=== PATIENT | male | born 1990 | race African-American/Black ===

== ENCOUNTER 2019-08-12 09:50 | Emergency (ER) | payer BC, SELFPAY ==
--- NOTE | ~2019-08-12 | CT_ITS ---
EXAMINATION: CT lumbar spine wo con EXAM DATE: 08/12/2019 13:08 INDICATION: Fell 4 times yesterday. TECHNIQUE: Spiral CT lumbar spine was performed without contrast. Axial, coronal and sagittal images were reviewed. The dose-length product (DLP) for this examination was 1232.37 mGy-cm. The exposure was tailored according to patient size (auto mA exposure control), and iterative reconstruction (ASIR ) was used as additional dose reduction technique. Correlation is made to Lumbar spine MRI examinatio n 05/18/2019 FINDINGS: Sacroiliac joints intact. There is no evidence of acute lumbar fracture or spondylolysis. There is no disc space widening or traumatic vertebral body subluxation suspected. Paraspinal soft tissue is unremarkable. The vertebral bodies are aligned in the AP dimension. L4-5 has mild to moderate disc bulge with superimposed central extrusion, some inferior migration mike pected, have increased slightly in size compared to previous exam. This is causing moderate central c anal stenosis. Only mild spondylosis at the other levels. There are no bony erosions identified. A detailed level by level evaluation of spondylosis can be added as addendum if requested. IMPRESSION: 1. L4-5 disc bulge, central protrusion and moderate central canal stenosis, may have progressed slig htly compared to April. 2. No acute findings. Reviewed, dictated and finalized at location B. MATION QA ANALYST IMPRESSION: 1. L4-5 disc bulge, central protrusion and moderate central canal stenosis, ma y have progressed slightly compared to April. 2. No acute findings.
[2019-08-12 10:09] VITALS: BP 161/100; PULSE 99; RESP 19; TEMP 36.9; O2SAT 100
--- NOTE | 2019-08-12 13:37 | ED.BACK ---
HPI - Back Pain/Injury General Chief Complaint: Back Pain/Injury Stated Complaint: back pain Time Seen by Provider: 08/12/19 11:36 Source: patient Mode of arrival: ambulatory Limitations: no limitations History of Present Illness HPI Narrative: Patient presents with chief complaint of exacerbation of chronic low back pain with bilateral radiculopathy. Patient states that he has bulging disks in his back. He denies known injury that caused the symptoms. 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 Patient states that he is a patient at the [facility] and he had back injections 3 weeks ago but they did not help so he was referred to another specialist. Patient states he was supposed to see his primary care Dr. Scott, but he has been rescheduled over the last 3 days. He states that the pain hurts so bad that is difficult to ambulate. He reports he feels best when lying flat on his back. Patient denies saddle paresthesia or loss of bowel or bladder function. Patient denies fever, chills, nausea, vomiting, urinary symptoms. Patient states that he takes gabapentin for his pain. Patient states that he also takes methocarbamol. Patient states methocarbamol, gabapentin, tramadol, Naproxen did not help with his pain. Related Data Home Medications Medication Instructions Recorded Confirmed acyclovir 08/12/19 gabapentin 08/12/19 metformin mg PO 08/12/19 naproxen 08/12/19 Allergies Allergy/AdvReac Type Severity Reaction Status Date / Time No Known Allergies Allergy Verified 08/12/19 10:12 Review of Systems Review of Systems: Narrative: CONSTITUTIONAL: Denies fever, chills, or sweats. EYES: Denies visual changes, redness, or discharge. ENT: Denies rhinorrhea, congestion, sore throat, or otalgia. CARDIOVASCULAR: Denies chest pain, palpitations, or edema. RESPIRATORY: Denies cough or dyspnea. GASTROINTESTINAL: Denies abdominal pain, nausea, vomiting, or diarrhea. GENITOURINARY: Denies dysuria or hematuria. SKIN: Denies rash or itching. MUSCULOSKELETAL: Reports back pain, denies joint pain, or myalgia. NEUROLOGIC: Denies headache, numbness, dizziness, or weakness. PSYCHIATRIC: Denies anxiety or depression. [facility] Past Medical History Medical History (Updated 08/12/19 @ 14:30 by Ivelisse Brown PA-C) L4-L5 disc bulge Social History Social History (Updated 08/12/19 @ 13:50 by Ivelisse Brown PA-C) Smoking status: Never smoker Alcohol intake: unknown Substance use: never Gender identity (if verbalized by the patient): Male Exam Narrative: Exam Narrative: GENERAL: Well-appearing, well-nourished, and in no acute distress. HEAD: Normocephalic, atraumatic. EYES: PERRLA and EOMI. ENT: Nares clear, no rhinorrhea or epistaxis. Mucous membranes moist. Oropharynx without tonsillar hypertrophy exudate or other lesions. Bilateral TMs pearly flowers nonbulging NECK: Supple. No adenopathy or masses. No carotid bruits or JVD CHEST: Clear to auscultation. No respiratory distress. No wheezes rales or rhonchi HEART: Regular rate and rhythm. No murmur heard. Normal peripheral pulses. ABDOMEN: Soft, nontender, nondistended, normal active bowel sounds. BACK: No pain with palpation. No outward signs of trauma. Patient has sensation range of motion intact in his lower extremities. Patient has back brace which she has removed. Patient reports pain to lower back with any range of motion of lower extremities while performing straight leg raise test. Patient most comfortable in supine position. EXTREMITIES: Normal range of motion. No edema. SKIN: Warm, dry, no rash. NEURO: No focal deficits. Alert and oriented x3. PSYCH: Normal mood and affect. Course Vital Signs Vital signs: Vital Signs Temperature 98.5 F 08/12/19 10:09 Pulse Rate 99 08/12/19 10:09 Respiratory Rate 19 08/12/19 10:09 Blood Pressure 161/100 H 08/12/19 10:09 Pulse Oxim
[2019-08-12] MEDS: KETOROLAC (*BKC) 60 MG/2 ML VIAL 30 MG IM (13:38)
[2019-08-12] MEDS: methylPREDNISolone SOD SUCC 125 MG VIAL 80 MG IM (13:38)
[2019-08-12 14:56] VITALS: BP 140/90; PULSE 80; RESP 18; O2SAT 99
== END 2019-08-12 14:57 | disposition home or self-care (01) ==
PROVIDERS: Emergency Provider Emergency Medicine; PCP Anesthesiology Pain Medicine
DX: M51.26 Other intervertebral disc displacement, lumbar region (principal); M48.061 Spinal stenosis, lumbar region without neurogenic claudication; E11.9 Type 2 diabetes mellitus without complications
CPT/HCPCS: 72131; 96372; 99284; J1885; J2930

== ENCOUNTER 2023-05-03 18:37 | Emergency (ER) | payer SELFPAY ==
--- NOTE | ~2023-05-03 | XR_ITS ---
EXAMINATION: XR shoulder LT min 2V DATE: 05/03/2023 19:04 INDICATION: Left shoulder pain while lifting weights TECHNIQUE: AP internally and externally rotated, AP oblique externally rotated and transscapular Y vi ews of the left shoulder were obtained. COMPARISON: None FINDINGS: Normal alignment. No fracture. Glenohumeral joint is normal. Acromioclavicular joint is normal. Soft tissues are unremarkable. Visualized portions of the lungs are clear. IMPRESSION: Negative left shoulder radiographs. Reviewed, dictated and finalized at location A.
[2023-05-03 18:46] VITALS: BP 166/98; PULSE 101; RESP 16; TEMP 36.2
--- NOTE | 2023-05-03 20:35 | ED.GENADULT ---
HPI - General Adult General Chief complaint: Unspecified Stated complaint: elft shoulder pain Time Seen by Provider: 05/03/23 19:51 History of Present Illness HPI narrative: Patient is a 32-year-old male who presents to the emergency department this afternoon complaining of left shoulder pain. Patient states that he has been having issues with his left shoulder for the past few months, however, due to some yard work and working out at the gym today, he feels as though he aggravated it and now is complaining of worsening pain. Patient states that the pain is worse with movement and he is unable to abduct his left arm more than 30 to 40 degrees due to pain. He denies any recent falls or injuries. Patient denies any chest pain, shortness of breath, nausea, vomiting, abdominal pain, dysuria, hematuria, constipation, diarrhea, melena, hematochezia, fevers or chills. He also denies any headaches, dizziness, lightheadedness, blurry visions, dizziness, focal weakness, numbness and or tingling. There are no other modifying, alleviating, or precipitating factors at this time. Related Data Home Medications Medication Instructions Recorded Confirmed acyclovir 800 mg tablet 08/12/19 gabapentin 800 mg tablet 08/12/19 metformin 500 mg tablet,extended mg PO 08/12/19 release 24 hr naproxen 500 mg tablet 08/12/19 Allergies Allergy/AdvReac Type Severity Reaction Status Date / Time No Known Allergies Allergy Verified 08/12/19 10:12 Review of Systems Review of Systems: All systems are reviewed and are negative unless stated otherwise in the HPI. [facility] Past Medical History Medical History L4-L5 disc bulge Social History Social History Smoking status: Never smoker Alcohol intake: unknown Substance use: never Gender identity (if verbalized by the patient): Male Exam Narrative: General: Alert, awake, afebrile, in no acute distress. HEENT: PERRL, no rhinorrhea, no post nasal drip, oropharynx clear. Neck: Trachea midline, no JVD, no lymphadenopathy. Cardiovascular: Regular rate and rhythm, no murmurs, rubs or gallops, no peripheral edema. Respiratory: Clear to auscultation bilaterally, no tachypnea, no wheezing, no rhonchi, no rubs, no respiratory distress. Abdomen: Soft, nontender, nondistended, no rebound, no guarding, no peritoneal signs. Musculoskeletal: No joint swelling or deformity, normal muscle tone, limited range of motion at the left shoulder joint due to pain, patient is only able to abduct his left arm at the shoulder joint 30 to 40 degrees from midline, no palpable deformity, patient is neurovascularly intact Skin: No rashes or petechia, no signs of infection. Psychiatric: Alert and oriented, normal behavior and judgment for situation. Neurological: Alert and oriented to person, place, and time. Follows all commands. No focal deficits, speech is clear and fluent. Course Vital Signs Vital signs: Vital Signs Temperature 97.2 F L 05/03/23 18:46 Pulse Rate 101 H 05/03/23 18:46 Respiratory Rate 16 05/03/23 18:46 Blood Pressure 166/98 H 05/03/23 18:46 Oxygen Delivery Room Air 05/03/23 18:46 Temperature 97.2 F L 05/03/23 18:46 Pulse Rate 101 H 05/03/23 18:46 Respiratory Rate 16 05/03/23 18:46 Blood Pressure 166/98 H 05/03/23 18:46 Oxygen Delivery Room Air 05/03/23 18:46 Medical Decision Making MDM Narrative Medical decision making narrative: The patient was evaluated by myself in the emergency department. History is obtained from patient who is an independent historian and physical exam was performed. External medical records were reviewed at this time. Imaging studies obtained included a left shoulder x-ray which was independently interpreted by me revealing no acute process, which is pending final radiology interpretation. Differential diagnosi
[2023-05-03 20:58] VITALS: BP 170/112; PULSE 98; RESP 20; O2SAT 98
== END 2023-05-03 20:59 | disposition home or self-care (01) ==
PROVIDERS: Emergency Provider Emergency Medicine; PCP Anesthesiology Pain Medicine
DX: S43.422A Sprain of left rotator cuff capsule, initial encounter (principal); M75.52 Bursitis of left shoulder; X50.9XXA Other and unspecified overexertion or strenuous movements or postures, initial encounter
CPT/HCPCS: 73030; 99283

== ENCOUNTER 2024-03-30 15:02 | Outpatient (CLI) | payer BC, SELFPAY ==
--- NOTE | ~2024-03-30 | XR_ITS ---
Lumbosacral Spine: AP and lateral views Clinical History: Pain Findings: The normal lordotic curve is maintained. The vertebral bodies and posterior elements are i ntact. There is mild loss of disc height at L4-L5 and L5-S1.. The sacroiliac joints are normally out lined. Impression: Minimal degenerative spondylosis. Reviewed, dictated and finalized at [facility]. Impression: Minimal degenerative spondylosis.
--- NOTE | ~2024-03-30 | XR_ITS ---
EXAM: XR shoulder RT min 2V DATE: 03/30/2024 15:52 HISTORY: PAIN OF R SHOULDER JOINT;LBP . COMPARISON: None available. FINDINGS: Normal mineralization. No fracture or dislocation. No lytic or blastic lesion. Joint space s are maintained. No erosion or periosteal change. Soft tissues within normal limits. IMPRESSION: Normal right shoulder radiograph findings. If symptoms persist consider MRI of the should er for further evaluation. Reviewed, dictated and finalized at location K. IMPRESSION: Normal right shoulder radiograph findings. If symptoms persist cons ider MRI of the shoulder for further evaluation.
== END 2024-03-30 15:03 | disposition home or self-care (01) ==
PROVIDERS: PCP Nurse Practitioner Family; Visit Provider Nurse Practitioner Family
DX: M47.816 Spondylosis without myelopathy or radiculopathy, lumbar region (principal); M47.817 Spondylosis without myelopathy or radiculopathy, lumbosacral region; M25.511 Pain in right shoulder
CPT/HCPCS: 72100; 73030

== ENCOUNTER 2025-02-08 11:36 | Emergency (ER) | payer BC, SELFPAY ==
[2025-02-08] VITALS (24 sets, daily range): BP systolic 147–173; BP diastolic 99–113; PULSE 79–103; RESP 9–21; TEMP 36.8; O2SAT 97–100
--- NOTE | ~2025-02-08 | XR_ITS ---
Exam: Chest 2 views. Clinical history: CP TECHNIQUE: Frontal and lateral images of the chest were obtained. Comparisons: None. FINDINGS: Heart is not enlarged. No pneumothorax. No pleural effusion. No free air in the diaphragm. Right hilum is prominent. Differential includes overlapping vasculature, adenopathy, mass or focal co nsolidation. No comparison studies are available. A chest CT is recommended. IMPRESSION: 1.Right hilum is prominent. Differential includes overlapping vasculature, adenopathy, mass or focal consolidation. No comparison studies are available. A chest CT is recommended. Reviewed, dictated and finalized at location A. IMPRESSION: 1.Right hilum is prominent. Differential includes overlapping vasculature, dori opathy, mass or focal consolidation. No comparison studies are available. A [facility] CT is recommended.
--- NOTE | ~2025-02-08 | CT_ITS ---
EXAMINATION: CTA chest DATE: 02/08/2025 13:27 CDT INDICATION: Chest pain TECHNIQUE: Computed tomographic angiography (CTA) of the chest was performed with 100 mL Omnipaque-35 0 intravenous contrast. The dose-length product was 608.33 mGy-cm. Maximum intensity projection 3D-re constructions of the aorta and other arteries were constructed by the technologist on a separate work station. Automated exposure control and iterative reconstruction technique were employed. COMPARISON: Chest x-ray dated 02/08/2025 FINDINGS: No evidence for aortic aneurysm or dissection. Heart size normal. Small pericardial effusio n. No significant pleural effusion. Fatty infiltration of the liver. There are densely calcified subc arinal and right hilar lymph nodes accounting for appearance on chest x-ray. There is residual thymic tissue in the anterior mediastinum. No endobronchial lesions. No focal airspace consolidation. No pn eumothorax. No suspicious pulmonary nodules or masses. Mild thoracic spondylosis with accentuated kyp hosis. No acute osseous abnormality. No evidence for pulmonary embolism. IMPRESSION: 1. Densely calcified right hilar and subcarinal lymph nodes account for prominent right hilar appeara nce on recent chest x-ray. 2: No acute cardiopulmonary disease. 3: Small pericardial effusion. Reviewed, dictated and finalized at location A. IMPRESSION: 1. Densely calcified right hilar and subcarinal lymph nodes account for promine nt right hilar appearance on recent chest x-ray. 2: No acute cardiopulmonary disease. 3: Small pericardial effusion.
--- NOTE | 2025-02-08 11:39 | ECG_ITS ---
Test Date: 2025-02-08 11:47:15 Measurements Intervals [place] Rate: 93 P: 41 DC: 193 QRS: 53 QRSD: 89 T: 29 QT: 339 QTc: 424 Interpretive Statements SINUS RHYTHM DELAYED PRECORDIAL R/S TRANSITION BASELINE ARTIFACT- I, II, AVR, V1 BORDERLINE ECG No previous ECG available for comparison Electronically Signed On 02-08-2025 12:05:05 CDT by Skyler Reno D.O.
[2025-02-08 11:59] LABS: Hematocrit 44.1 % (42.0-52.0); Hemoglobin 14.8 g/dL (14.0-18.0); Immature Granulocyte Percent A 0.3 % (0-0.5); Lymphocytes Absolute Auto 2.23 K/mm3 (0.9-3.2); Mean Corpuscular HGB Conc 33.6 g/dl (32-36); Mean Corpuscular Hemoglobin 30.2 pg (26-34); Mean Corpuscular Volume 90.0 fl (80-100); Nucleated Red Blood Cells Absolute Auto 0.000 K/mm3 (0.0-0.012); Nucleated Red Blood Cells Perc 0.0 % (0.0-0.2); Platelet Count Result 292 k/mm3 (150-375); Red Blood Count 4.90 M/mm3 (4.6-6.20); White Blood Count 10.1 K/mm3 (4.5-10.0)
[2025-02-08 12:12] LABS: Alanine Aminotransferase 33 U/L (6-50); Albumin Level 4.9 g/dL (3.5-5.1); Alkaline Phosphatase 76 U/L (38-126); Anion Gap 9 mmol/L (4-12); Aspartate Amino Transferase 37 U/L (17-59); Bilirubin,Total 1.0 mg/dL (0.2-1.3); Blood Urea Nitrogen 14 mg/dL (9-20); Calcium 9.7 mg/dL (8.4-10.2); Carbon Dioxide 22 mmol/L (22-30); Chloride 107 mmol/L (98-107); Estimated CRCL calculation 96 ml/min; Estimated Glomerular Filt Rate > 60; Glucose 169 mg/dL (65-110); Lipase 63 U/L (23-300); Potassium 4.0 mmol/L (3.4-5.0); Sodium 138 mmol/L (137-145); Total Protein 8.2 g/dL (6.3-8.2)
[2025-02-08 12:14] LABS: INR 1.0; Prothrombin Time 13.8 Seconds (11.1-14.7)
[2025-02-08 12:15] LABS: Partial Thromboplastin Time 25.6 Seconds (22.3-36.8)
--- OUTSIDE RECORDS SUMMARY | 2025-02-08 12:21 | XMS_ITS | Clinical Summary ---
Author Organization [facility] Address [address] [place] [address] Care Team Providers Care White Lead Filterer Name Role Phone Unavailable Primary Care Provider Unavailabl e Source Comments [facility],non-owned Affiliates and Associated Physician Practices is amultiple site organization consisting of ambulatory clinics and hospital sitesin [place], [place], [place] and [place]. This disclosure is being madepursuant to the Care Everywhere program and may not contain all information available regarding this patient. Last updated 18.[facility] Medications * Be aware that medications may not be up to date on this document. Alwaysverify current medications with the patient. naproxen (NAPROSYN) 500 MG tablet Take 500 mg by mouth as needed 0 08/15/2018 Active gabapentin (NEURONTIN) 100 MG capsule Take 100 mg by mouth 3 times daily 0 08/15/2018 Active acyclovir (ZOVIRAX) 400 MG tablet Take 400 mg by mouth once daily 10 07/28/2018 Active methocarbamol (ROBAXIN) 500 MG tabletIndication s:Acute bilateral low back pain with right-sided sciatica Take 1 tablet by mouth 2 times daily as needed for Muscle Spasms 30 tablet 1 09/02/2018 Active Active Problems Problem Noted Date Diagnosed Date Acute bilateral low back pain with right-sided s ciatica 09/02/2018 Social History Tobacco Use Types Packs/Day Years Used Date Smoking Tobacco: Never Assessed Sex and Gender Information Value Date Recorded Sex Assigned at Not on file Legal Sex Male 3:54 PM CAPSULE FILLER Gender Identity Not on file Sexual Orientation Not on file Last Filed Vital Signs Vital Sign Reading Time Taken Comments Blood Pressure 164/109 09/02/2018 8:55 AM CAPSULE FILLER Pulse 73 09/02/2018 8:55 AM CAPSULE FILLER Temperature 36.7 C (98 F) 09/02/2018 8:55 AM CAPSULE FILLER Respiratory Rate - - Oxygen Saturation 100% 09/02/2018 8:55 AM CAPSULE FILLER Inhaled Oxygen Concentration - - Weight 117 kg (258 lb) 09/02/2018 8:55 AM CAPSULE FILLER Height 190.5 cm (6' 3) 09/02/2018 8:55 AM CAPSULE FILLER Body Mass Index 32.25 09/02/2018 8:55 AM CAPSULE FILLER Plan of Treatment Health Maintenance Due Date Last Done Comments HIV SCREENING 2007 HEPATITIS C SCREENING 06/29/2010 DTAP/TDAP/TD VACCINES (1 - Tdap) 2011 HEPATITIS B VACCINE (1 of 3 - 19+ 3-dose series) 2011 HPV VACCINE (1 - 3-dose SCDM series) 2019 COVID-19 VACCINE (1 - 2023-2 5 season) 2024 DEPRESSION SCREENING 06/30/2024 INFLUENZA VACCINE (#1) 2025 ZOSTER VACCINE (1 of 2) 2042 HIB VACCINE Aged Out No longer eligi ble based on patient's age to complete this topic MENINGOCOCCAL (Group B) VACC INE SHARED DECISION-MAKING Aged Out No longer eligibl e based on patient's age to complete this topic MENINGOCOCCAL GROUPS A/C/Y/W VACCINE Aged Out No longer eligible b ased on patient's age to complete this topic PNEUMOCOCCAL VACCINE Aged Out No long er eligible based on patient's age to complete this topic Insurance ANTH
[2025-02-08 12:22] LABS: Troponin I < 0.012 ng/mL (0.000-0.034)
--- OUTSIDE RECORDS SUMMARY | 2025-02-08 12:49 | XMS_ITS | Clinical Summary ---
Author Organization [facility] Address [address] [place] [address] Care Team Providers Care Teletype Technician Name Role Phone Unavailable Primary Care Provider Unavailabl e Source Comments [facility],non-owned Affiliates and Associated Physician Practices is amultiple site organization consisting of ambulatory clinics and hospital sitesin [place], [place], [place] and [place]. This disclosure is being madepursuant to the Care Everywhere program and may not contain all information available regarding this patient. Last updated 18.[facility] Medications * Be aware that medications may [...] on file Legal Sex Male 3:54 PM MOBILE HEAVY EQUIPMENT OPERATOR Gender Identity Not on file Sexual Orientation Not on file Last Filed Vital Signs Vital Sign Reading Time Taken Comments Blood Pressure 164/109 09/02/2018 8:55 AM MOBILE HEAVY EQUIPMENT OPERATOR Pulse 73 09/02/2018 8:55 AM MOBILE HEAVY EQUIPMENT OPERATOR Temperature 36.7 C (98 F) 09/02/2018 8:55 AM MOBILE HEAVY EQUIPMENT OPERATOR Respiratory Rate - - Oxygen Saturation 100% 09/02/2018 8:55 AM MOBILE HEAVY EQUIPMENT OPERATOR Inhaled Oxygen Concentration - - Weight 117 kg (258 lb) 09/02/2018 8:55 AM MOBILE HEAVY EQUIPMENT OPERATOR Height 190.5 cm (6' 3) 09/02/2018 8:55 AM MOBILE HEAVY EQUIPMENT OPERATOR Body Mass Index 32.25 09/02/2018 8:55 AM MOBILE HEAVY EQUIPMENT OPERATOR Plan of Treatment Health Maintenance Due Date [...]
--- NOTE | 2025-02-08 13:33 | ED_ITS ---
HPI - General Adult General Chief complaint: Chest Pain Stated complaint: chest pain. lightheaded, dizzy Time Seen by Provider: 02/08/25 12:02 History of Present Illness HPI narrative: 34-year-old male presenting to the emergency department for evaluation after having a near syncopal episode at work with associated chest pain. 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 Patient states the dizziness was associated with some possible heart palpitations and right-sided chest pain. Patient states symptoms lasted just a few minutes and then resolved. Was able sit sit down and rest and symptoms improved. Patient states he does still have some chest wall tightness. Patient does have history of diabetes but states his blood sugars are typically well controlled. Patient does have history of hypertension does take losartan but did not take it this morning. 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 Did not feel dehydrated. Patient did eat breakfast this morning. Patient denies any excessive caffeine intake. Related Data Home Medications ?Medication ?Instructions ?Recorded ?Confirmed ?Last Taken ?Type acyclovir 800 mg tablet 08/12/19 Unknown History gabapentin 800 mg tablet 08/12/19 Unknown History metformin 500 mg tablet,extended mg PO 08/12/19 Unknown History release 24 hr naproxen 500 mg tablet 08/12/19 Unknown History Allergies Allergy/AdvReac Type Severity Reaction Status Date / Time No Known Allergies Allergy Verified 02/08/25 11:50 Review of Systems 2 Review of Systems: All systems reviewed & are unremarkable except as noted in HPI and below PMFSH Past Medical History Medical History L4-L5 disc bulge Social History Social History Smoking status: Never smoker Alcohol intake: unknown Substance use: never Gender identity (if verbalized by the patient): Male Exam 2 Narrative: APPEARANCE: Well appearing, no pain, no distress, well-nourished. HEAD: normocephalic, atraumatic. EYES: PERRLA/EOMI, conjunctivae clear. NOSE: Normal no drainage EARS:TMS clear with good light reflex. THROAT: Pharynx clear, no exudate. NECK: Supple. No adenopathy, no masses. RESPIRATORY: Airway patent, respirations nonlabored. Clear to auscultation bilaterally, no rales, rhonchi, wheezing. CARDIOVASCULAR: Regular rate and rhythm without murmurs rubs or gallops. ABDOMINAL: Soft, nontender, nondistended, normal bowel sounds MUSCULOSKELETAL: Mild right-sided chest wall tenderness to palpation NEURO: Alert. Cranial nerves II through XII intact. Grossly intact SKIN: Warm, dry. Normal Color Course Vital Signs Vital signs: Vital Signs Temperature 98.3 F 02/08/25 11:42 Pulse Rate 97 02/08/25 11:42 Respiratory Rate 18 02/08/25 11:42 Blood Pressure 161/111 H 02/08/25 11:42 Pulse Oximetry 100 02/08/25 11:42 Oxygen Delivery Room Air 02/08/25 11:42 Temperature 98.3 F 02/08/25 11:42 Pulse Rate 85 02/08/25 16:33 Respiratory Rate 18 02/08/25 16:33 Blood Pressure 156/99 H 02/08/25 16:33 Pulse Oximetry 100 02/08/25 16:33 Oxygen Delivery Room Air 02/08/25 11:42 Medical Decision Making MDM Narrative Medical decision making narrative: 34-year-old male presents to the emergency department for evaluation for episode of possible heart palpitations lightheaded dizziness. Patient is currently afebrile with a minor leukocytosis of 10.1 and a stable hemoglobin of 14.8. Patient has an INR of 1.0. Patient has no anion gap and a glucose of 169 with normal AST ALT alk-phos and lipase and troponin. Chest x-ray did show a prominent right hilum and CT chest was recommended. CTA was ordered. Patient was treated with his morning dose of p.o. 100 mg losartan. Patient's blood pressure is improved after treatment. Patient did complain of some right-sided chest pain. CTA was negative for pulmonary embolism. Patient's repeat troponin was negative. Patient was offered admission for further cardiac and syncope workup but patient declined. Patient does have a Holter monitor ordered for him. Patient was strongly encouraged of close follow-up with Cardiology or if he had any worsening symptoms to call or return to the emergency department. Differential Diagnosis Differential Diagnosis: Hypertension, ACS, pneumonia, pneumothorax, pulmonary embolism, SVT, AFib, orthostatic hypotension Vital Signs Vital Signs: Vital Signs Temperature 98.3 F 02/08/25 11:42 Pulse Rate 97 02/08/25 11:42 Respiratory Rate 18 02/08/25 11:42 Blood Pressure 161/111 H 02/08/25 11:42 Pulse Oximetry 100 02/08/25 11:42 Oxygen Delivery Room Air 02/08/25 11:42 Temperature 98.3 F 02/08/25 11:42 Pulse Rate 85 02/08/25 16:33 Respiratory Rate 18 02/08/25 16:33 Blood Pressure 156/99 H 02/08/25 16:33 Pulse Oximetry 100 02/08/25 16:33 Oxygen Delivery Room Air 02/08/25 11:42 Lab Data Lab results reviewed: Yes I reviewed the patient's lab results. 02/08/25 11:54 02/08/25 11:54 Labs: Lab Results 02/08/25 02/08/25 Range/Units 11:54 14:26 WBC 10.1 H (4.5-10.0) K/mm3 RBC 4.90 (4.6-6.20) M/mm3 Hgb 14.8 (14.0-18.0) g/dL Hct 44.1 (42.0-52.0) % MCV 90.0 (80-100) fl MCH 30.2 (26-34) pg MCHC 33.6 (32-36) g/dl RDW 13.3 (11.5-14.5) % Plt Count 292 (150-375) k/mm3 MPV 9.6 (7.4-10.4) fl Immature Gran % (Auto) 0.3 (0-0.5) % Neut % (Auto) 70.9 (45.5-73.1) % Lymph % (Auto) 22.1 (18.3-44.2) % [place] % (Auto) 5.0 (2.6-8.5) % Eos % (Auto) 1.0 (0-4.4) % Baso % (Auto) 0.7 (0.2-1.2) % Lymph # (Auto) 2.23 (0.9-3.2) K/mm3 [place] # (Auto) 0.5 (0.1-0.6) K/mm3 Eos # (Auto) 0.1 (0-0.3) K/mm3 Baso # (Auto) 0.1 (0.0-0.1) K/mm3 Abs Immat Gran (auto) 0.03 (0.00-0.031) K/mm3 Absolute Neuts (auto) 7.2 H (1.3-6.7) K/mm3 Absolute Nucleated RBC 0.000 (0.0-0.012) K/mm3 Nucleated RBC % 0.0 (0.0-0.2) % PT 13.8 (11.1-14.7) Seconds INR 1.0 APTT 25.6 (22.3-36.8) Seconds Sodium 138 (137-145) mmol/L Potassium 4.0 (3.4-5.0) mmol/L Chloride 107 (98-107) mmol/L Carbon Dioxide 22 (22-30) mmol/L Anion Gap 9 (4-12) mmol/L BUN 14 (9-20) mg/dL Creatinine 1.36 H (0.7-1.3) mg/dL Estim Creat Clear Calc 96 ml/min Estimated GFR > 60 (59 - ) Glucose 169 H (65-110) mg/dL Calcium 9.7 (8.4-10.2) mg/dL Magnesium 1.9 (1.6-2.3) mg/dL Total Bilirubin 1.0 (0.2-1.3) mg/dL AST 37 (17-59) U/L ALT 33 (6-50) U/L Alkaline Phosphatase 76 (38-126) U/L Troponin I < 0.012 < 0.012 (0.000-0.034) ng/mL Total Protein 8.2 (6.3-8.2) g/dL Albumin 4.9 (3.5-5.1) g/dL Lipase 63 (23-300) U/L TSH (Reflex) 0.837 (0.465-4.68) uIU/mL Imaging Data Radiologist's impression: Impressions Chest X-Ray 02/08/25 12:28 IMPRESSION: 1.Right hilum is prominent. Differential includes overlapping vasculature, adenopathy, mass or focal consolidation. No comparison studies are available. A chest CT is recommended. Chest CTA 02/08/25 13:27 IMPRESSION: 1. Densely calcified right hilar and subcarinal lymph nodes account for prominent right hilar appearance on recent chest x-ray. 2: No acute cardiopulmonary disease. 3: Small pericardial effusion. ECG Data EKG #1: EKG Interpretation: normal rate, sinus rhythm, no ectopy, non-specific ST changes, normal QRS, normal QT and NL axis Discharge Plan Discharge Clinical Impression: Near syncope, Heart palpitations, Atypical chest pain Patient Disposition: Home Condition: Stable Instructions: Antibiotic Form, Chest Pain (ED), Heart Palpitations (DC), Near Syncope (ED) Additional Instructions: You were offered admission for further cardiac and near syncope workup you prefer to have outpatient follow-up. If you have any worsening symptoms then please call or return to the emergency department. Follow-up with your primary care physician for your Holter monitor. Drink plenty of fluids. Do not work from heights in order to prevent fall or injury if you have additional near syncopal episodes. Patient Language: Kyrgyz Prescriptions: No Action acyclovir 800 mg tablet gabapentin 800 mg tablet metformin 500 mg tablet extended release 24 hr PO naproxen 500 mg tablet hydrocodone-acetaminophen 5-325 mg tablet 1 tablet PO Q8H PRN (Reason: pain) Qty: 12 0RF Other Ambulatory Orders: [place] holter monitor 3-7 day (Routine) Timeframe: 1 Day Location: Determined by Patient Ordered By: Edilson Rodriguez Follow-up/Referrals: Angel Luis,Amarjit Davenport APRN [Primary Care Provider] - Stand Alone Forms: Work/School Release IP Quality HEART score for chest pain patients History: slightly suspicious ECG: normal Age: < or = to 45 years Risk factors: 1 or 2 risk factors Troponin: < or = to 1x normal limit Heart score: 1
[2025-02-08] MEDS: LOSARTAN POTASSIUM 100 MG TABLET PO (13:57)
--- NOTE | 2025-02-08 14:29 | ECG_ITS ---
Test Date: 2025-02-08 14:32:09 Measurements Intervals [place] Rate: 83 P: 19 ND: 184 QRS: 15 QRSD: 98 T: 20 QT: 353 QTc: 416 Interpretive Statements SINUS RHYTHM WITH SINUS ARRHYTHMIA POSSIBLE LEFT ATRIAL ENLARGEMENT DELAYED PRECORDIAL R/S TRANSITION BORDERLINE ECG Compared to ECG 02/08/2025 11:47:15 NO SIGNIFICANT CHANGE Electronically Signed On 02-08-2025 14:43:42 CDT by Skyler Reno D.O.
[2025-02-08 14:31] LABS: Magnesium 1.9 mg/dL (1.6-2.3)
[2025-02-08 15:01] LABS: Troponin I < 0.012 ng/mL (0.000-0.034)
[2025-02-08 15:05] LABS: Thyroid Stimulating Hormone Reflex 0.837 uIU/mL (0.465-4.68)
[2025-02-08] MEDS: KETOROLAC 15 MG/ML VIAL (*BKC) IV PUSH (15:30)
--- NOTE | 2025-02-22 11:52 | WPDHOLTEREM ---
Holter/Event Monitor Holter/Event Monitor Date of procedure: 02/08/25 Holter/Event Procedure: 3-7 Day Holter Monitor Indications: Palpitations Conclusion: 1. 5 days 16 hours holter monitor on 02/08/25. 2. Underlying rhythm is sinus rhythm. HR range 37-166 bpm; average HR 100 bpm. HR at 37 bpm was on 02/10/25 at 3:13 am with 2nd degree AV block, type I. HR at 166 bpm on 02/12/25 at 6:06 pm. 3. There are rare premature supraventricular complexes. No supraventricular tachycardia. 4. There are rare premature ventricular complexes. No ventricular tachycardia. 5. No significant pauses greater than 3 seconds. 6. Patient reports 3 episodes of irregular beats, chest pain which demonstrate sinus rhythm, HR range 87-112 bpm.
== END 2025-02-08 16:34 | disposition home or self-care (01) ==
PROVIDERS: Physician Assistant; Emergency Provider Emergency Medicine; PCP Nurse Practitioner Family
DX: R55 Syncope and collapse (principal); R00.2 Palpitations; R07.89 Other chest pain; E11.9 Type 2 diabetes mellitus without complications
CPT/HCPCS: 36415; 71046; 71275; 80053; 83690; 83735; 84443; 84484; 85025; 85610; 85730; 93005; 93242; 96374; 96375; 99284; A9270; J0360; J1885; Q9967